=== PATIENT | female | born 1990 | race African-American/Black ===

== ENCOUNTER 2023-08-24 17:50 | Emergency (ER) | payer OTHER ==
[~2023-08-24] VITALS: Ht 167.6 cm; Wt 81.8 kg
[2023-08-24] MEDS ORDERED: inhaler IH (17:54)
[2023-08-24] MEDS: ACETAMINOPHEN 500 MG TABLET PO ONE (19:27)
[2023-08-24] MEDS: MethylPREDNISolone SOD SUCC 125 MG/2 ML VIAL IM ONE (19:51)
[2023-08-24] MEDS: IPRATROPIUM BROMIDE 0.5 MG/2.5 ML NEB SOLUTION NEB ONE (20:12)
[2023-08-24] MEDS: ALBUTEROL SULFATE 2.5 MG/0.5 ML NEB SOLUTION NEB ONE (20:13)
[2023-08-24 20:15] VITALS: PULSE 83; RESP 16; RESP 18; O2SAT 99
[2023-08-24 20:35] VITALS: PULSE 88; RESP 16; O2SAT 100
[2023-08-24] MEDS ORDERED: PRED-554 PO (21:40)
[2023-08-24] MEDS ORDERED: ALBU18HF12 IH (21:40)
[2023-08-24] MEDS ORDERED: DIPH50CA37 PO (21:40)
[2023-08-24 21:55] VITALS: BP 129/68; PULSE 74; RESP 16; TEMP 98.3
== END 2023-08-24 22:12 | disposition home or self-care (01) ==
LOC: EMS 17:52
DX: T78.1XXA Other adverse food reactions, not elsewhere classified, initial encounter (principal); J45.901 Unspecified asthma with (acute) exacerbation; F12.90 Cannabis use, unspecified, uncomplicated; X58.XXXA Exposure to other specified factors, initial encounter
CPT/HCPCS: 99285; 94640; 96372; J2930